=== PATIENT | male | born 1985 | race Caucasian/White ===

== ENCOUNTER 2021-10-11 11:58 | Emergency (ER) | payer BC, SELFPAY ==
[2021-10-11 12:08] VITALS: BP 143/95; PULSE 105; RESP 16; TEMP 36.6; O2SAT 100
--- NOTE | 2021-10-11 12:15 | ED.BACK ---
HPI - Back Pain/Injury General Chief Complaint: Back Pain/Injury Stated Complaint: back pain Time Seen by Provider: 10/11/21 12:16 Source: patient Mode of arrival: ambulatory Limitations: no limitations History of Present Illness HPI Narrative: 35-year-old male presents with complaint of low back pain for 3 days. Is taking ibuprofen without relief. States that back is the most painful when first waking up in the morning. Takes him about 10 to 15 minutes to get out of bed due to muscle tightness. No radiation of back pain to lower extremities. Denies numbness tingling. No loss of bowel or bladder. Denies injury. 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 Does not notice back pain is worse while driving in car but is painful when getting out of car. Aware that he has mild scoliosis. Has had history of low back pain but nothing recently. Patient ambulatory with steady gait. All systems reviewed and negative except as noted above. Related Data Home Medications Medication Instructions Recorded Confirmed amlodipine 10 mg tablet 10 mg DIRECTED 10/11/21 10/11/21 atorvastatin 10 mg tablet 10 mg DIRECTED 10/11/21 10/11/21 divalproex 500 mg tablet,extended 500 mg PO DIRECTED 10/11/21 10/11/21 release 24 hr empagliflozin 10 mg tablet 10 mg DIRECTED 10/11/21 10/11/21 (Jardiance) ergocalciferol (vitamin D2) 1,250 1,250 mcg DIRECTED 10/11/21 10/11/21 mcg (50,000 unit) capsule lisinopril 40 mg tablet 40 mg DIRECTED 10/11/21 10/11/21 oxcarbazepine 600 mg tablet 600 mg DIRECTED 10/11/21 10/11/21 Allergies Allergy/AdvReac Type Severity Reaction Status Date / Time Penicillins Allergy Unknown Verified 10/11/21 12:22 Review of Systems Review of Systems: CONSTITUTIONAL: Denies fever, chills, or sweats. EYES: Denies visual changes, redness, or discharge. ENT: Denies rhinorrhea, congestion, sore throat, or otalgia. CARDIOVASCULAR: Denies chest pain, palpitations, or edema. RESPIRATORY: Denies cough or dyspnea. GASTROINTESTINAL: Denies abdominal pain, nausea, vomiting, or diarrhea. GENITOURINARY: Denies dysuria or hematuria. SKIN: Denies rash or itching. MUSCULOSKELETAL: Reports low back pain. Denies joint pain, or myalgia. NEUROLOGIC: Denies headache, numbness, or weakness. PSYCHIATRIC: Denies anxiety or depression. All other systems reviewed are negative, except as documented in HPI. PMFSH Comments At time of signature, agree with nursing past medical, surgical, social and family history. There is no relevant family history pertinent to the presenting complaint. Exam Narrative: GENERAL: This is a well-nourished, well-developed patient, in no apparent distress. HEAD: normocephalic, atraumatic. EYES: PERRL. Sclera clear/white. Vision is grossly intact. EARS: External ears normal NOSE: External nose normal NECK: Neck supple, non-tender without lymphadenopathy, masses or thyromegaly. CARDIOVASCULAR: Regular rate and rhythm without murmurs, gallops, or rubs. RESPIRATORY: Clear to auscultation. Breath sounds equal bilaterally. No wheezes, rales, or rhonchi. SKIN: warm, Dry, intact with no suspicious lesions or rash, good texture and turgor. NEURO: awake, alert, and oriented to person, place and time. There were no obvious focal neurologic abnormalities. EXTREMITIES: No joint tenderness, effusion, or edema noted. No calf tenderness. Negative Homans sign bilaterally. BACK: Generalized muscular tenderness low back. Muscle spasm noted. Decreased range of motion due to pain. Lower extremity strength bilateral 5/ 5. Course Course Level of Care: Express Care Visit Vital Signs Vital signs: Vital Signs Temperature 36.6 C 10/11/21 12:08 Pulse Rate 105 H 10/11/21 12:08 Respiratory Rate 16 10/11/21 12:08 Blood Pressure 143/95 H 10/11/21 12:08 Pulse Oximetry 100 10/11/21 12:08 Oxygen Delivery Room Air 10/11/21 12:08 Temperature 36.6 C 10/11/21 12:08 Pulse Rate 105 H
== END 2021-10-11 12:45 | disposition home or self-care (01) ==
PROVIDERS: Emergency Provider Nurse Practitioner Family
DX: S39.012A Strain of muscle, fascia and tendon of lower back, initial encounter (principal); X58.XXXA Exposure to other specified factors, initial encounter; E78.00 Pure hypercholesterolemia, unspecified; I10 Essential (primary) hypertension; E11.9 Type 2 diabetes mellitus without complications
CPT/HCPCS: 99203; G0463